=== PATIENT | male | born 2000 | race Caucasian/White ===

== ENCOUNTER 2024-11-16 22:58 | Emergency (ER) | payer BC, OTHER, SELFPAY ==
[2024-11-16 23:04] VITALS: BMI 17.2
[2024-11-16 23:05] VITALS: BP 140/101
--- NOTE | 2024-11-16 23:43 | ED.GENMED ---
History of Present Illness
General
Chief Complaint: Crisis Evaluation
Source: patient
Time Seen by Provider: 11/16/24 23:20
History of Present Illness
History of Present Illness:
Note:
CHIEF COMPLAINT(S)
Abnormal behavior at home and knee injury.
HISTORY OF PRESENT ILLNESS
The patient is a 24-year-old male who presents for evaluation following a knee injury and concerns about behavioral changes at home. The knee issue began after the patient banged it, causing a scrape to the right patella. There is no significant
ligamentous instability, and the patient is able to bear weight without focal tenderness. The patients primary concern involves mental challenges, describing feelings of being mentally drained and finding it difficult to cope. He acknowledges
challenges in maintaining composure and describes the experience as 'hard.' The patient reported feeling calm upon assessment.
The patients parents were concerned due to abnormal behavior, prompting the police to visit the home twice in one day. The patient has been cooperative and voluntarily seeking assistance. He is also working with the crisis intervention team.
PAST MEDICAL AND SURGICAL HISTORY
No significant past medical or surgical history is known at this time.
SOCIAL DETERMINANTS AFFECTING HEALTH
The patient is a smoker and expressed interest in using a nicotine patch to aid in cessation.
SOCIAL HISTORY
The patient is a smoker and has been offered a nicotine patch to assist in quitting.
PHYSICAL EXAM
General: Alert, no acute distress.
Skin: Warm, dry with abrasion noted on the right patella.
Head: Normocephalic, atraumatic.
Neck: Supple, trachea midline.
Eye Ears, nose, mouth and throat: Oral mucosa moist.
Cardiovascular: Normal peripheral perfusion, No edema.
Respiratory: Respirations are non-labored.
Gastrointestinal : Abdomen nondistended.
Back: Normal range of motion, Normal alignment.
Musculoskeletal: Normal range of motion, normal strength, except for an abrasion on the right patella; able to bear weight without focal tenderness.
Neurological: Alert and oriented to person, place, time, and situation, No focal neurological deficit observed.
Psychiatric: Cooperative, appropriate mood & affect, though mentally drained.
PROBLEM LIST
Acute Problems:
- Knee abrasion.
- Mental health challenges.
Chronic Problems:
- Tobacco use.
PLAN
- Apply dressing to the right knee.
- Behavioral intervention and support from the crisis team.
- Provide a nicotine patch to assist with smoking cessation.
DIFFERENTIAL DIAGNOSIS
The Differential Diagnosis includes, in no particular order and is not limited to:
1. Anxiety Disorder
2. Depression
3. Adjustment Disorder
4. Substance Use Disorder
5. Post-Traumatic Stress Disorder (PTSD)
6. Obsessive-Compulsive Disorder (OCD)
7. Bipolar Disorder
8. Schizophrenia
9. Personality Disorder
10. Acute Stress Reaction
Disposition:
SUMMARY OF ENCOUNTER
The patient, a 24-year-old male, was seen in the emergency department due to concerns about abnormal behavior at home and a knee injury. He is experiencing mental health challenges described as being mentally drained and having difficulty coping. He
presents as alert and cooperative, though tearful and concerned about being in the hospital. Management included consultation with a crisis intervention team and nicotine control due to his smoking habit, for which he was given a nicotine patch.
Additionally, the patient was provided with food and requested something to help him relax. A plan for admission to a psychiatric facility was initiated to further address his mental health needs. His physical examination showed an abrasion on the
right patella, but no significant injury preventing weight-bearing.
ASSESSMENT
- Continued mental health challenges possibly linked with anxiety or depression.
- Tobacco use requiring intervention.
REASSESSMENT
The patient remains tearful and concerned about the hospital stay, yet cooperative and voluntary for further assistance.
PLAN
- Apply dressing to the abrasion on the right knee.
- Engage behavioral support and intervention from the crisis team.
- Administer nicotine patch for smoking cessation.
- Arrange for placement at a psychiatric facility for further evaluation and management of mental health.
MEDICATION RECONCILIATION
- Nicotine patch given for smoking cessation.
MEDICAL DECISION MAKING
- Number and Complexity of Problems Addressed: Acute Problem: Mental health challenges; Chronic Problem: Tobacco use.
- Data:
Category 1: Consultation involved engagement with the crisis intervention team for mental health assessment.
Category 3: Management discussion focused on mental health interventions with the crisis intervention team and admission arrangements to a psychiatric facility.
- Risk: Patient demonstrated cooperative behavior and voluntarily seeks assistance, yet requires psychiatric facility admission for comprehensive mental health management.
DIAGNOSIS
- Adjustment Disorder (ICD-10 Code: F43.23)
- Tobacco Use Disorder (ICD-10 Code: F17.200)
Past History
Social History
Tobacco: Non-smoker
Phy Exam
Physical Exam
Physical Exam:
.
Course
Orders/Labs/Results
Orders:
Orders
11/17/24 03:23
Nicotine [Nicoderm Transdermal] 14 mg TRANSDERM NOW STA
11/17/24 03:57
Asenapine Sublingual [Saphris] 5 mg SL NOW STA
Vital Signs
Initial and Last Documented VS:
Initial Vital Signs
Pulse Resp BP Pulse Ox
101 18 140/101 96
11/16/24 23:05 11/16/24 23:05 11/16/24 23:05 11/16/24 23:05
Last Documented Vital Signs
Temp Pulse Resp BP Pulse Ox
97.5 F 72 18 118/99 96
11/17/24 03:32 11/17/24 03:32 11/16/24 23:05 11/17/24 03:32 11/17/24 03:32
*Pulse Oximetry
SaO2: 96
Oxygen Mode of Delivery: Room air
Patient hypoxic: no
*Critical Care Note
Total Time (30-74mins, 75-104mins- exclusive of procedures): Not Applicable
ED Attending Note
-
Portions of this chart may have been created with voice recognition software.� Occasional wrong word or��sound alike� substitutions may have occurred due to the inherent limitations of voice recognition software.
Discharge Plan
Departure
Patient Disposition: Psych Facility
Date of Disposition: 11/16/24
Time of Disposition: 23:43
Discharge Problem:
Acute psychosis
Prescriptions:
No Action
loperamide 2 MG capsule
1 cap PO PRN PRN (Reason: diarrhea)
dextroamphetamine-amphetamine [Adderall XR] 30 MG capsule,extended release 24hr
30 mg PO DAILY
Referrals:
UNKNOWN - PT DOES,NOT KNOW [Family Provider]
Interventions
Interventions:
*Risk Screen - Suicide Last Done: 11/16/24 23:07
*General Assessment Last Done: 11/16/24 23:06
*Neglect/Abuse Screening Last Done: 11/16/24 23:06
*ED- Fall Risk Assessment Last Done: 11/16/24 23:06
*ED COVID-19 Vaccine History Last Done: 11/16/24 23:08
ED-Psychological Assessment Last Done: 11/16/24 23:10
Discharge Date and Time
Print Language: KYRGYZ
[2024-11-17 03:32] VITALS: BP 118/99
[2024-11-17] MEDS: NICODERM TRANSDERMAL 14 MG TRANSDERM (03:32)
[2024-11-17] MEDS: SAPHRIS 5 MG SL (04:02)
[2024-11-17 08:02] VITALS: BP 126/83
--- NOTE | 2024-11-17 11:41 | EDRN ---
Report given to [facility] staff.
== END 2024-11-17 11:42 ==
LOC: EMR 22:58
PROVIDERS: EMERGENCY PHYSICIAN Emergency Medicine
DX: F23 Brief psychotic disorder (principal); S80.211A Abrasion, right knee, initial encounter; X58.XXXA Exposure to other specified factors, initial encounter; Z72.0 Tobacco use
CPT/HCPCS: 99282; 80306